=== PATIENT | male | born 1990 | race African-American/Black ===

== ENCOUNTER 2019-08-30 15:12 | Emergency (ER) | payer OTHER ==
[~2019-08-30] VITALS: Ht 175.3 cm; Wt 68.0 kg
[2019-08-30] MEDS ORDERED: FLEXERIL PO (16:36)
[2019-08-30] MEDS ORDERED: MEDROLDOSEPACK PO (16:36)
[2019-08-30] MEDS ORDERED: TYLENOL WITH CO1 TA1 PO (16:36)
[2019-08-30 16:53] VITALS: BP 121/72
== END 2019-08-30 16:54 | disposition home or self-care (01) ==
LOC: M.ERS 15:12
DX: S13.8XXA Sprain of joints and ligaments of other parts of neck, initial encounter (principal); M54.6 Pain in thoracic spine; V89.2XXA Person injured in unspecified motor-vehicle accident, traffic, initial encounter; Y93.89 Activity, other specified; Y92.89 Other specified places as the place of occurrence of the external cause; Y99.8 Other external cause status